=== PATIENT | male | born 1940 | race Caucasian/White ===

== ENCOUNTER → 2016-10-22 | Outpatient (CLI) | payer MEDICARE, OTHER | END | disposition home or self-care (01) | LOC: GMAL 10:14 | PROVIDERS: ATTEND Family Medicine | DX: D51.3 Other dietary vitamin B12 deficiency anemia (principal); E03.8 Other specified hypothyroidism; Z12.5 Encounter for screening for malignant neoplasm of prostate | CPT/HCPCS: 82607; 84439; 84443; G0103 ==

== ENCOUNTER → 2017-04-22 | Outpatient (CLI) | payer MEDICARE, OTHER | LOC: GMAL 12:07 | PROVIDERS: ATTEND Family Medicine | DX: E55.9 Vitamin D deficiency, unspecified (principal) ==

== ENCOUNTER → 2018-01-26 | Outpatient (CLI) | payer MEDICARE, OTHER | LOC: GMAL 12:10 | PROVIDERS: ATTEND Family Medicine | DX: E03.8 Other specified hypothyroidism (principal); Z12.5 Encounter for screening for malignant neoplasm of prostate | CPT/HCPCS: 84439; 84443; 84481; G0103 ==

== ENCOUNTER → 2019-02-02 | Outpatient (CLI) | payer MEDICARE, OTHER | LOC: GMAL 10:18 | PROVIDERS: ATTEND Family Medicine | DX: D51.3 Other dietary vitamin B12 deficiency anemia (principal); E03.8 Other specified hypothyroidism; E55.9 Vitamin D deficiency, unspecified; E11.9 Type 2 diabetes mellitus without complications; E78.2 Mixed hyperlipidemia; Z79.899 Other long term (current) drug therapy; Z12.5 Encounter for screening for malignant neoplasm of prostate | CPT/HCPCS: 82306; 82607; 84439; 84443; 84481; G0103 ==

== ENCOUNTER → 2019-02-15 | Outpatient (CLI) | payer MEDICARE, OTHER | LOC: LAB.O 07:52 | PROVIDERS: ATTEND Orthopaedic Surgery | DX: Z01.818 Encounter for other preprocedural examination (principal) ==

== ENCOUNTER 2019-03-17 05:32 | Day surgery (SDC) | payer MEDICARE, OTHER ==
--- NOTE | 2019-03-15 09:32 | RAD ---
EXAM DESCRIPTION: Hand,Left 3 Views CLINICAL HISTORY: preop surgery to the thumb. COMPARISON: None. TECHNIQUE: 3 views left FINDINGS: Degenerative changes are observed in the distal interphalangeal joint of the first digit. 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 Degenerative changes are also observed in the metacarpal carpal articulation of the first digit. No fracturing is detected. IMPRESSION: Degenerative changes are observed. Electronically signed by: David Carney MD 03/15/2019 9:31 AM [facility]
[~2019-03-17 05:32] MED LIST: LACTATED RINGERS 0 ML ONE; SODIUM CHL 0.9% 100ML MINI-BAG 0 ML IVPB ONE; ceFAZolin SODIUM 1 GM VIAL ONE
[2019-03-17] MEDS ORDERED: SODIUM CHL 0.9% 100ML MINI-BAG 100 ML IVPB ONE (05:41)
[2019-03-17] MEDS ORDERED: LACTATED RINGERS 1,000 ML ONE (05:41)
[2019-03-17] MEDS ORDERED: ceFAZolin SODIUM 1 GM VIAL ONE (05:41)
[2019-03-17] MEDS ORDERED: PROPOFOL 200 MG/20 ML VIAL IV ONE (07:00)
[2019-03-17] MEDS ORDERED: ONDANSETRON INJ 4 MG/2 ML VIAL ONE (07:00)
[2019-03-17] MEDS ORDERED: LIDOCAINE 1% 10 ML VIAL INJ ONE ×2 (07:00→07:05)
[2019-03-17] MEDS ORDERED: BUPIVACAINE 0.25% INJ 30 ML VIAL INJ ONE (07:05)
[2019-03-17] MEDS ORDERED: LACTATED RINGERS 1,000 ML BAG IV ONE (07:55)
[2019-03-17] MEDS ORDERED: LACTATED RINGERS 1,000 ML IVS ONE (07:55)
[2019-03-17] MEDS ORDERED: fentaNYL CITRATE INJ 50 MCG/ML AMP ONE (10:03)
[2019-03-17] MEDS: ceFAZolin SODIUM 1 GM VIAL ONE ×2 (10:34→10:43)
[2019-03-17] MEDS: VANCOMYCIN HCL INJ 1,000 MG VIAL IVPB ONE ×2 (10:35→10:43)
[2019-03-17 11:53] VITALS: BP 157/61; TEMP 96.8; O2SAT 96
--- NOTE | 2019-03-19 09:18 | OP ---
DATE OF PROCEDURE: 03/17/19 PREOPERATIVE DIAGNOSIS: 1. Mucoid cyst of the left thumb. POSTOPERATIVE DIAGNOSIS: 1. Mucoid cyst of the left thumb. PROCEDURE: 1. Excision of cyst. SURGEON: Anuj Chauhan MD. FORENSIC PSYCHOLOGIST: Marc Cohen CST, SA-C. ANESTHESIA: Local with sedation. COMPLICATIONS: None. FINDINGS: Mucoid cyst arising from the interphalangeal joint of the thumb extending distally. INDICATION: Mr. Orr has a history of a cystic mass on the dorsum of the thumb just proximal to the germinal matrix of the thumb. He had this there for quite some time and had multiple issues with it when he would scrape it. Because of the ongoing issues he has had, he requested operative resection of it. After discussing the risks, benefits and alternatives to that, he gave informed consent for that. PROCEDURE: The patient was brought to the Operating Room and placed in supine position. Sedation was administered and local anesthetic was used to do a thumb block. Following that, the arm was sterilely prepped and draped. An L-shaped incision was made based proximally and a flap was elevated. Care was taken to ensure that the thin skin overlying the cyst was not penetrated. The stalk of the cyst was found, ligated and cauterized. Following that, the wound was very thoroughly irrigated. Following irrigation, the wound was closed with Nylon suture. Care was taken to ensure that the corner edge of the incision was closed without significant tension. Sterile dressings were placed. The patient was awoken from anesthesia and taken to Recovery. POSTOPERATIVE PLAN: He will followup with us in 2 days. #[id number] MTDD
== END 2019-03-17 11:28 | disposition home or self-care (01) ==
LOC: AMB 05:32
PROVIDERS: ATTEND Orthopaedic Surgery
DX: M25.842 Other specified joint disorders, left hand (principal); E11.9 Type 2 diabetes mellitus without complications; Z79.84 Long term (current) use of oral hypoglycemic drugs; Z79.899 Other long term (current) drug therapy
CPT/HCPCS: 00400; 26115; 36416; 73130; 80307; 82948; J0690; J2405; J3010; J3370; J3490; J7050; J7120

== ENCOUNTER → 2020-02-09 | Outpatient (CLI) | payer MEDICARE, OTHER | LOC: GMAL 10:47 | PROVIDERS: ATTEND Family Medicine | DX: D51.3 Other dietary vitamin B12 deficiency anemia (principal); E55.9 Vitamin D deficiency, unspecified; E03.8 Other specified hypothyroidism; E78.2 Mixed hyperlipidemia; Z79.899 Other long term (current) drug therapy; E11.9 Type 2 diabetes mellitus without complications ==

== ENCOUNTER → 2020-02-16 | Outpatient (CLI) | payer MEDICARE, OTHER | LOC: GMAL 14:33 | PROVIDERS: ATTEND Family Medicine | DX: Z12.5 Encounter for screening for malignant neoplasm of prostate (principal) ==